=== PATIENT | female | born 1940 ===

== ENCOUNTER 2020-03-14 09:57 | Emergency (ER) | payer OTHER ==
[~2020-03-14] VITALS: Ht 144.8 cm; Wt 47.2 kg
[~2020-03-14 09:57] MED LIST: ATIVAN2 MG; CELEBREX400 MG; METFORMIN HCL500 MG; NEURONTIN600 MG; OXYCODONE HCL30 MG; PERCOCET 5/3251 TAB; SYNTHROID50 MCG; SYNTHROID75 MCG; ZOCOR40 MG
[2020-03-14] MEDS ORDERED: LEVOTHYROXINE25 MCG (10:38)
[2020-03-14] MEDS ORDERED: GLIMEPIRIDE4 MG (10:39)
[2020-03-14] MEDS ORDERED: LUMIGAN2.5 M1 (10:40)
[2020-03-14] MEDS ORDERED: ULTRAM50 MG (10:40)
== END 2020-03-14 13:44 | disposition home or self-care (01) ==
LOC: ER 09:57
DX: R13.19 Other dysphagia (principal)